=== PATIENT | male | born 2000 | race African-American/Black ===

== ENCOUNTER 2019-05-08 15:09 | Emergency (ER) | payer SELFPAY ==
[~2019-05-08] VITALS: Ht 188 cm; Wt 81.6 kg
[2019-05-08 15:19] VITALS: BP 127/69
[2019-05-08] MEDS ORDERED: ACETAMINOPHEN/CODEINE#3 (300/30mg) TAB PO ONE (16:45)
== END 2019-05-08 17:13 | disposition home or self-care (01) ==
LOC: ER 15:31
DX: S62.639B Displaced fracture of distal phalanx of unspecified finger, initial encounter for open fracture (principal); F17.210 Nicotine dependence, cigarettes, uncomplicated; W22.8XXA Striking against or struck by other objects, initial encounter; Y93.89 Activity, other specified; Y99.8 Other external cause status; Y92.89 Other specified places as the place of occurrence of the external cause
CPT/HCPCS: 73140